=== PATIENT | male | born 1940 | race Caucasian/White ===

== ENCOUNTER → 2018-11-01 | Outpatient (CLI) | payer MEDICARE, BC ==
[~2018-11-01] MED LIST: ASC500 PO; ASPI-831 GTB; CHOL100016 PO; MULT-860 PO; OMEG-135 PO; OMEP40CA6 PO
--- NOTE | 2018-11-01 17:41 | CONS ---
Assessment/Plan Assessment/Plan Hospital Course (Demo Recall) 78-year-old male with history of severe lower back pain and radiculopathy and resolved 1 week left groin pain. The patient does have mildmoderate osteoarthritis of the hip. It has progressed slightly since his last x-ray a couple years ago. However his symptoms have resolved. It is possible he had a it appears that the physical therapy for his back and hip have significantly flareup of his osteoarthritis and or it may have been referred from the back. Improved his symptoms. At this time his hip osteoarthritis is not symptomatic in regards to pain. He does have slightly limited range of motion. At this time recommend continue conservative therapy with meloxicam and physical therapy for his lower back and hip. If his pain is going does return he would be a good candidate for hip injection to determine if this is in fact from the hip or the lower back. Follow-up PRN Consultation Date/Type/Reason Admit Date/Time Date of Consultation: Nov 01, 2018 Reason for Consultation Left hip pain Date/Time of Note DATE: 11/01/18 TIME: 17:26 Hx of Present Illness This is a 78-year-old male who presents with a history of left hip pain. Patient states the pain is in the groin. The pain started about a week and a half ago. It has now resolved. He started physical therapy a couple weeks ago for his back and hip. He is a month and a half status post epidural injections which significantly helped his radiculopathy. He takes meloxicam daily. The pain was primarily weight bearing and does not radiate. It is described as a dull ache. The pain is rated as a 4/10 with activity and to/10 at rest. Walking tolerance is unlimited with a limp. No external support. The patient does admit to a limp. Navigates stairs normally use of the banister. No difficulty with shoes and socks. No history of childhood or adolescent hip disease. No risk factors for avascular necrosis. There are symptoms to suggest referred pain from the back with radicular symptoms. Treatment to date has included oral anti-inflammatories, activity modification, physical therapy. Co mes to clinic today to evaluate any progression of his known osteoarthritis. He is concerned that his arthritis has progressed. He wants to avoid surgery. Duration: 1 week Injury: None Walking tolerance: Unlimited from hip. Limited from back Limp: Yes Support: No Stairs: Uses normally Physical Therapy: Yes Injections: Epidural spine injections NSAID's: Meloxicam Prior surgery: No Back pain: Yes Knee pain: No Risk of AVN : No Patient denies fever, chills, shortness of breath, chest pain, nausea/vomiting, constipation, diarrhea, numbness, and tingling. Past Medical History History of osteomyelitis right heel Diverticulitis Polycythemia vera Home Meds Reported Medications Fish Oil* (Fish Oil*) 1,000 Mg Cap, 1000 MG PO DAILY 11/30/12 Aspirin (Aspirin) 81 Mg Chew, 81 MG GTB DAILY 11/30/12 Cholecalciferol (Vitamin D3) 1,000 Unit Capsule, 1000 UNIT PO DAILY 11/30/12 Ascorbic Acid (Vitamin C) 500 Mg Tab, 500 MG PO BID 11/30/12 Mu-Vits-Min Th/Lycopene/Lutein (CENTRUM SILVER TABLET) 1 Each Tablet, 1 EACH PO DAILY 11/30/12 Omeprazole* (Omeprazole*) 40 Mg Capsule.dr, 20 MG PO DAILY 11/30/12 Allergies: Coded Allergies: No Known Allergy (Verified , 11/30/12) Past Surgical History Bilateral total knee arthroplasty by Dr. Kurtz Right total hip arthroplasty by Dr. Kurtz Right rotator cuff surgery Colon resection Hernia repair on right side Family History Significant Family History: no pertinent family hx Social History Alcohol Use: none Smoking Status: Never smoker Drug Use: none Exam/Review of Systems Exam Vitals Weight: 170 pound Height: 5 foot 10 inch Temperature: 90.2 Heart Rate: 55 Blood Pressure: 189/89 Respiratory Rate: 14 Exam General: Awake, alert, in no acute distress, pleasant and cooperative Heart: regular rhythm Lungs: breathing comfortably, no tachypnea or dyspnea Musculoskeletal: Well developed male in no apparent distress. Gait demonstrates an antalgic component and no short leg component. Standing, the pelvis is level and supine there is no true leg length discrepancy. No tenderness over trochanteric bursa or IT band. ----- Range of motion: Flexion: 90 Extension: 0 Internal rotation: 10 External rotation: 30 Abduction: 45 Adduction: 10 ----- Sitting there is no pelvic obliquity. No pain at the extremes of motion of the affected hip. Skin was intact throughout both lower extremities. Sensation intact to light touch in a sural, saphenous, deep peroneal, superficial peroneal, medial and lateral plantar nerve distribution. Neurovascular exam showed 5/5 strength in the abductors, quads, EHL/tibialis anterior/gastroc. Normal and symmetrical pulses were palpated in both the dorsalis pedis and posterior tibial arteries. There is no sign of venous stasis. Imaging Imaging The patient received a full set of films and personally reviewed by myself today in clinic including an AP pelvis and an AP and lateral of the affected hip. The hip is reduced. There is mildmoderate loss of joint space. There is minimal osteophyte formation. There is no subchondral sclerosis. There are no subchondral cysts. There is no significant deformity of the the proximal femur, femoral neck, or acetabulum. The pelvis is in continuity. Bone quality radiographically: Fair Surgical clips visible in the pelvis. Limited evaluation of the lumbar spine, however x-rays demonstrate severe degenerative disc disease DOREEN DAVENPORT MD Nov 01, 2018 17:36
== END | disposition home or self-care (01) ==
LOC: HKI 14:53
PROVIDERS: ATTEND Orthopaedic Surgery Adult Reconstructive Orthopaedic Surgery
DX: M25.552 Pain in left hip (principal); M54.5 Low back pain; M54.16 Radiculopathy, lumbar region; Z79.82 Long term (current) use of aspirin; Z96.653 Presence of artificial knee joint, bilateral; Z96.641 Presence of right artificial hip joint
CPT/HCPCS: 73502; G0463